=== PATIENT | male | born 1955 | race Caucasian/White ===

== ENCOUNTER → 2018-12-23 | Outpatient (CLI) | payer OTHER | LOC: WCC 16:06 | PROVIDERS: ATTEND Plastic Surgery | DX: S81.801A Unspecified open wound, right lower leg, initial encounter (principal); I10 Essential (primary) hypertension; E78.01 Familial hypercholesterolemia; W18.49XA Other slipping, tripping and stumbling without falling, initial encounter ==

== ENCOUNTER → 2018-12-30 | Outpatient (CLI) | payer OTHER | LOC: WCC 10:45 | PROVIDERS: ATTEND Plastic Surgery | DX: S81.801A Unspecified open wound, right lower leg, initial encounter (principal); S80.811A Abrasion, right lower leg, initial encounter; R60.0 Localized edema; I87.2 Venous insufficiency (chronic) (peripheral); I10 Essential (primary) hypertension; I73.00 Raynaud's syndrome without gangrene; D64.9 Anemia, unspecified; E78.01 Familial hypercholesterolemia; E78.2 Mixed hyperlipidemia; W18.49XA Other slipping, tripping and stumbling without falling, initial encounter ==

== ENCOUNTER → 2019-01-13 | Outpatient (CLI) | payer OTHER | LOC: WCC 13:08 | PROVIDERS: ATTEND Plastic Surgery | DX: S81.801A Unspecified open wound, right lower leg, initial encounter (principal); S80.811A Abrasion, right lower leg, initial encounter; R60.0 Localized edema; I87.2 Venous insufficiency (chronic) (peripheral); I73.00 Raynaud's syndrome without gangrene; I10 Essential (primary) hypertension; D64.9 Anemia, unspecified; E78.01 Familial hypercholesterolemia; E78.2 Mixed hyperlipidemia; W18.49XA Other slipping, tripping and stumbling without falling, initial encounter ==

== ENCOUNTER → 2019-01-27 | Outpatient (CLI) | payer OTHER | LOC: WCC 11:29 | PROVIDERS: ATTEND Plastic Surgery | DX: S81.801A Unspecified open wound, right lower leg, initial encounter (principal); S80.811A Abrasion, right lower leg, initial encounter; R60.0 Localized edema; I87.2 Venous insufficiency (chronic) (peripheral); I10 Essential (primary) hypertension; D64.9 Anemia, unspecified; E78.01 Familial hypercholesterolemia; E78.2 Mixed hyperlipidemia; I73.00 Raynaud's syndrome without gangrene; W18.49XA Other slipping, tripping and stumbling without falling, initial encounter ==

== ENCOUNTER → 2019-02-03 | Outpatient (CLI) | payer OTHER | LOC: WCC 11:30 | PROVIDERS: ATTEND Plastic Surgery | DX: S81.801A Unspecified open wound, right lower leg, initial encounter (principal); D64.9 Anemia, unspecified; E78.01 Familial hypercholesterolemia; E78.2 Mixed hyperlipidemia; I10 Essential (primary) hypertension; I73.00 Raynaud's syndrome without gangrene; I87.2 Venous insufficiency (chronic) (peripheral); R60.0 Localized edema; W18.49XA Other slipping, tripping and stumbling without falling, initial encounter ==